=== PATIENT | male | born 1965 | race Caucasian/White ===

== ENCOUNTER → 2018-04-27 | Outpatient (CLI) | payer OTHER ==
[~2018-04-27] MED LIST: REGADENOSON 0.4 MG/5 ML SYRINGE ONE
== END | disposition home or self-care (01) ==
LOC: CFH 08:26
PROVIDERS: ATTEND Internal Medicine Cardiovascular Disease
DX: R94.31 Abnormal electrocardiogram [ECG] [EKG] (principal); R42 Dizziness and giddiness
CPT/HCPCS: 78452; 93017; A9502; J2785

== ENCOUNTER → 2020-01-09 | Outpatient (CLI) | payer OTHER | END | disposition home or self-care (01) | LOC: CFH 11:30 | PROVIDERS: ATTEND Physician Assistant Medical | DX: I42.9 Cardiomyopathy, unspecified (principal); I25.10 Atherosclerotic heart disease of native coronary artery without angina pectoris | CPT/HCPCS: 78452; 93017; A9502; J2785 ==

== ENCOUNTER → 2020-08-12 | Outpatient (CLI) | payer OTHER | END | disposition home or self-care (01) | LOC: CVU 09:22 | PROVIDERS: ATTEND Internal Medicine Cardiovascular Disease | DX: I08.0 Rheumatic disorders of both mitral and aortic valves (principal); R07.9 Chest pain, unspecified; I42.9 Cardiomyopathy, unspecified | CPT/HCPCS: 93306; 93356 ==

== ENCOUNTER 2020-09-09 11:15 | Day surgery (SDC) | payer OTHER ==
[~2020-09-09] VITALS: Ht 180.3 cm; Wt 97.0 kg
[2020-09-09] MEDS ORDERED: ZOLP10TA PO (12:13)
[2020-09-09] MEDS ORDERED: SUVO20TA PO (12:16)
[2020-09-09] MEDS ORDERED: AMIT50TA PO (12:16)
[2020-09-09] MEDS ORDERED: CLON1TAB11 PO (12:22)
[2020-09-09] MEDS ORDERED: ROSU20TA2 PO (12:22)
[2020-09-09] MEDS ORDERED: GABA-826 PO (12:22)
[2020-09-09] MEDS ORDERED: RANITIDINE PO (12:22)
[2020-09-09] MEDS ORDERED: PANT20TA4 PO (12:22)
[2020-09-09] MEDS ORDERED: FLUO20CA19 PO (12:22)
[2020-09-09] MEDS ORDERED: FLUD0.1T PO (12:22)
[2020-09-09] MEDS ORDERED: ISOPROTERENOL 0.2MG/ML, 5ML ONE (13:14)
== END 2020-09-09 14:38 | disposition home or self-care (01) ==
LOC: CACL 11:15
PROVIDERS: ATTEND Internal Medicine Cardiovascular Disease
DX: I95.1 Orthostatic hypotension (principal); G90.8 Other disorders of autonomic nervous system; Z79.899 Other long term (current) drug therapy; Z88.8 Allergy status to other drugs, medicaments and biological substances
CPT/HCPCS: 93660

== ENCOUNTER → 2020-10-28 | Outpatient (CLI) | payer OTHER ==
[~2020-10-28] MED LIST changes: +AMIT50TA PO; +CLON1TAB11 PO; +FLUD0.1T PO; +FLUO20CA19 PO; +GABA-826 PO; +PANT20TA4 PO; +RANITIDINE PO; -REGADENOSON 0.4 MG/5 ML SYRINGE ONE; +ROSU20TA2 PO; +SUVO20TA PO; +ZOLP10TA PO
== END | disposition home or self-care (01) ==
LOC: RAD 11:15
PROVIDERS: ATTEND Neurological Surgery
DX: Z01.810 Encounter for preprocedural cardiovascular examination (principal); Z01.811 Encounter for preprocedural respiratory examination; Z01.812 Encounter for preprocedural laboratory examination; M54.17 Radiculopathy, lumbosacral region; R79.1 Abnormal coagulation profile; R82.90 Unspecified abnormal findings in urine; R94.31 Abnormal electrocardiogram [ECG] [EKG]; M43.06 Spondylolysis, lumbar region
CPT/HCPCS: 71046; 93005